=== PATIENT | male | born 1990 | race American Indian/Alaskan Native ===

== ENCOUNTER 2017-07-31 18:09 | Emergency (ER) | payer SELFPAY ==
[2017-07-31 20:06] LABS: Basophils % (Auto) 0.4 % (0.0-1.8); Eosinophils % (Auto) 0.1 % (0.0-4.3); Hematocrit 45.3 % (35.5-45.6); Hemoglobin 14.7 gm/dl (11.8-15.2); Mean Corpuscular HGB Conc 32 % (32-34); Mean Corpuscular Hemoglobin 29 pg (28-32); Mean Corpuscular Volume 89 fl (84-94); Platelet Count 199 K/mm3 (140-440); Red Blood Count 5.08 M/mm3 (3.65-5.03); Red Cell Distribution Width 12.5 % (13.2-15.2); White Blood Count 11.4 K/mm3 (4.5-11.0)
[2017-07-31 20:23] LABS: Alanine Aminotransferase 12 units/L (7-56); Albumin 4.4 g/dL (3.9-5); Albumin/Globulin Ratio 1.7 %; Alkaline Phosphatase 37 units/L (35-129); Anion Gap 16 mmol/L; BUN/Creatinine Ratio 13; Blood Urea Nitrogen 20 mg/dL (9-20); Calcium 9.2 mg/dL (8.4-10.2); Carbon Dioxide 27 mmol/L (22-30); Chloride 100.5 mmol/L (98-107); Glucose 87 mg/dL (75-100); Lipase 21 units/L (13-60); Potassium 3.9 mmol/L (3.6-5.0); Sodium 140 mmol/L (137-145)
[2017-07-31 22:45] LABS: Bilirubin,Urine NEG (Negative); Blood,Urine NEG (Negative); Ketones,Urine 20 mg/dL (Negative); Leukocyte Esterase,Urine NEG (Negative); Mucus,Urine 2+ /HPF; Nitrite,Urine NEG (Negative)
--- NOTE | 2017-08-01 00:40 | Emergency Department Report ---
ED General Adult HPI - General Chief complaint: Back Pain/Injury Stated complaint: KIDNEY PAIN/NAUSEA Time Seen by Provider: 08/01/17 00:13 Source: patient Mode of arrival: Ambulatory Limitations: No Limitations - History of Present Illness Initial comments: pt is a 26 y/o aam with hx nmh who presents for right flank pain x 1 week worsening each day pt endorses dysuria and hesitency 2 days ago now with worsen right flank pain 5/10 gnawing aching pulling pain pt denies fever, chills, no hematuria , however pain does prevent sleep at night awakening him with 4 nights over the past week, pain is 4/10 aching this time. Onset/Timin -: week(s) Location: back (right flank) Radiation: flank Severity scale (0 -10): 5 Quality: aching, sharp Consistency: constant Improves with: none Worsens with: movement, other (palpation) Associated Symptoms: loss of appetite, malaise, nausea/vomiting. denies: confusion, chest pain, cough, diaphoresis, fever/chills, headaches, shortness of breath, syncope, weakness Treatments Prior to Arrival: none - Related Data Previous Rx's Medication Instructions Recorded Last Taken Type Levofloxacin [Levaquin TAB] 500 mg PO QDAY #10 tablet 08/01/17 Unknown Rx Tamsulosin [Flomax] 0.4 mg PO QDAY #30 cap 08/01/17 Unknown Rx traMADol [Ultram] 50 mg PO Q6HR PRN #21 tablet 08/01/17 Unknown Rx Allergies Allergy/AdvReac Type Severity Reaction Status Date / Time No Known Allergies Allergy Unverified 07/31/17 19:24 ED Review of Systems ROS: Stated complaint: KIDNEY PAIN/NAUSEA Other details as noted in HPI Constitutional: denies: chills, fever Eyes: denies: eye pain, eye discharge, vision change ENT: denies: ear pain, throat pain Respiratory: denies: cough, shortness of breath, wheezing Cardiovascular: denies: chest pain, palpitations Endocrine: no symptoms reported Gastrointestinal: nausea. denies: abdominal pain, diarrhea, constipation, hematemesis, melena, hematochezia Genitourinary: dysuria. denies: urgency, frequency, hematuria, discharge, testicular pain, testicular mass Musculoskeletal: back pain (right flank). denies: joint swelling, arthralgia Skin: denies: rash, lesions Neurological: denies: headache, weakness, paresthesias Psychiatric: denies: anxiety, depression Hematological/Lymphatic: denies: easy bleeding, easy bruising ED Past Medical Hx - Past Medical History Previous Medical History?: No - Surgical History Past Surgical History?: Yes Additional Surgical History: Hernia repair - Social History Smoking Status: Never Smoker Substance Use Type: None - Medications Home Medications: Home Medications Medication Instructions Recorded Confirmed Last Taken Type Levofloxacin [Levaquin TAB] 500 mg PO QDAY #10 tablet 08/01/17 Unknown Rx Tamsulosin [Flomax] 0.4 mg PO QDAY #30 cap 08/01/17 Unknown Rx traMADol [Ultram] 50 mg PO Q6HR PRN #21 tablet 08/01/17 Unknown Rx ED Physical Exam - General Limitations: No Limitations General appearance: alert, in no apparent distress - Head Head exam: Present: atraumatic, normocephalic - Eye Eye exam: Present: normal appearance - ENT ENT exam: Present: mucous membranes moist - Neck Neck exam: Present: normal inspection - Respiratory Respiratory exam: Present: normal lung sounds bilaterally. Absent: respiratory distress - Cardiovascular Cardiovascular Exam: Present: regular rate, normal rhythm. Absent: systolic murmur, diastolic murmur, rubs, gallop - GI/Abdominal GI/Abdominal exam: Present: soft, normal bowel sounds. Absent: distended, tenderness, guarding, rebound, rigid, organomegaly, mass, bruit, pulsatile mass , hernia - Rectal Rectal exam: Present: deferred - exam: Present: circumcision. Absent: testicular tenderness, urethral discharge, scrotal swelling, vertical testicular lie - Extremities Exam Extremities exam: Present: normal inspection, full ROM, normal capillary refill. Absent: tenderness, pedal edema, joint swelling, calf tenderness - Back Exam Back exam: Present: normal inspection, tenderness, CVA tenderness (R) (right cva tenderness ). Absent: muscle spasm, paraspinal tenderness, vertebral tenderness, rash noted - Neurological Exam Neurological exam: Present: alert, oriented X3, CN II-XII intact, normal gait, reflexes normal - Psychiatric Psychiatric exam: Present: normal affect, normal mood - Skin Skin exam: Present: warm, dry, intact, normal color. Absent: rash ED Course Vital Signs 07/31/17 19:24 Temperature 98.3 F Pulse Rate 77 Respiratory 18 Rate Blood Pressure 124/71 O2 Sat by Pulse 99 Oximetry ED Medical Decision Making - Lab Data Result diagrams: 07/31/17 19:44 07/31/17 19:44 Laboratory Tests 07/31/17 07/31/17 07/31/17 19:44 19:44 21:54 WBC 11.4 H RBC 5.08 H Hgb 14.7 Hct 45.3 MCV 89 MCH 29 MCHC 32 RDW 12.5 L Plt Count 199 Lymph % (Auto) 5.4 L Barren % (Auto) 5.8 Eos % (Auto) 0.1 Baso % (Auto) 0.4 Lymph # 0.6 L Barren # 0.7 Eos # 0.0 Baso # 0.0 Seg Neutrophils % 88.3 H Seg Neutrophils # 10.1 H Sodium 140 Potassium 3.9 Chloride 100.5 Carbon Dioxide 27 Anion Gap 16 BUN 20 Creatinine 1.5 Estimated GFR > 60 BUN/Creatinine Ratio 13 Glucose 87 Calcium 9.2 Total Bilirubin 1.10 AST 18 ALT 12 Alkaline Phosphatase 37 Total Protein 7.0 Albumin 4.4 Albumin/Globulin Ratio 1.7 Lipase 21 Urine Color Yellow Urine Turbidity Clear Urine pH 5.0 Ur Specific Barnwell 1.034 H Urine Protein 30 mg/dl Urine Glucose (UA) Neg Urine Ketones 20 Urine Blood Neg Urine Nitrite Neg Urine Bilirubin Neg Urine Urobilinogen 2.0 Ur Leukocyte Esterase Neg Urine WBC (Auto) 1.0 Urine RBC (Auto) 2.0 U Epithel Cells (Auto) < 1.0 Urine Mucus 2+ - Radiology Data Radiology results: image reviewed mild to moderate right sided hydronephrosis secondary to 5.5 mm renal stone, in distal right ureter - Medical Decision Making pt is a 26 y/o aam with hx nmh who presents for right flank pain x 1 week worsening each day pt endorses dysuria and hesitency 2 days ago now with worsen right flank pain 5/10 gnawing aching pulling pain pt denies fever, chills, no hematuria , however pain does prevent sleep at night awakening him with 4 nights over the past week, pain is 4/10 aching this time. exam: pt appears well nontoxic well hydrated well nourished with nad, right flankl mild right cva tenderness pt is currently voiding without difficulty , discussed ct finding including mild hydronephrosis with 5/5 mm calculi pt refuses admission for abx and tx, advises that he cannot stay plan: out pt follow up with urology Critical care attestation.: If time is entered above; I have spent that time in minutes in the direct care of this critically ill patient, excluding procedure time. ED Disposition Clinical Impression: Renal calculus or stone Disposition: TO HOME OR SELFCARE Is pt being admited?: No Does the pt Need Aspirin: No Condition: Stable Instructions: Kidney Stones (ED), How to Strain Your Urine (ED) Prescriptions: Levofloxacin [Levaquin TAB] 500 mg PO QDAY #10 tablet Tamsulosin [Flomax] 0.4 mg PO QDAY #30 cap traMADol [Ultram] 50 mg PO Q6HR PRN #21 tablet PRN Reason: Pain Referrals: PRIMARY CARE, [Primary Care Provider] - 3-5 Days ELAINE MCCRARY MD [Staff Physician] - 3-5 Days Forms: Work/School Release Form(ED) Time of Disposition: 03:03
[2017-08-01] MEDS: NACL 0.9% 1000 ML 1,000 ML IV ONE (01:13)
[2017-08-01] MEDS: ZOFRAN IV ONE (01:14)
[2017-08-01] MEDS: TORADOL IV ONE (01:15)
--- NOTE | 2017-08-01 01:24 | Cat Scan Report ---
FINAL REPORT EXAM: CT ABDOMEN PELVIS WO CON HISTORY: right flank pain r/o stone TECHNIQUE: Routine axial imaging was obtained of the abdomen and pelvis without IV contrast. FINDINGS: The lung bases are clear. Pleural fluid is not seen. The liver, gallbladder, pancreas, spleen, and adrenal glands appear normal. The kidneys are remarkable for [id number] right-sided hydronephrosis secondary to a 5.5 millimeter stone in the distal right ureter. There are no additional renal stones. The bowel loops are normal in caliber and course. The appendix is not seen. There is no evidence of adenopathy. In the pelvis the bladder and prostate gland appear normal. The skeletal structures are well-maintained. IMPRESSION: [id number] right-sided hydronephrosis secondary to a 5.5 millimeter stone in the distal right ureter.
[2017-08-01] MEDS: ROCEPHIN/NS 1 GM/50 ML 1 GM/50 ML BAG IV ONE (02:35)
[2017-08-01 03:26] VITALS: BP 113/77
== END 2017-08-01 03:24 | disposition home or self-care (01) ==
LOC: ED 18:09
DX: N20.0 Calculus of kidney (principal); Z98.890 Other specified postprocedural states
CPT/HCPCS: 36415; 74176; 80053; 81001; 83690; 85025; 96361; 96365; 96375; 99284; J0696; J1885; J2405; J7030